=== PATIENT | female | born 1980 | race African-American/Black ===

== ENCOUNTER 2016-12-20 19:08 | Emergency (ER) | payer MEDICAID ==
[~2016-12-20] VITALS: Ht 160 cm; Wt 103.4 kg
[~2016-12-20 19:08] MED LIST: DIFLUCAN100 MG ORAL; IBUPROFEN600 MG ORAL; IBUPROFEN800 M1 PO; METROGEL-VAGINA70 G1 VAGIN
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
[2016-12-20] MEDS ORDERED: TYLENOL EXTRA500 MG ORAL (20:57)
[2016-12-20 21:08] VITALS: BP 127/84
[2016-12-20 21:09] VITALS: BP 127/84
== END 2016-12-20 21:10 | disposition home or self-care (01) ==
LOC: EMR 20:24
DX: M62.830 Muscle spasm of back (principal); O26.93 Pregnancy related conditions, unspecified, third trimester; Z3A.35 35 weeks gestation of pregnancy; V43.92XA Unspecified car occupant injured in collision with other type car in traffic accident, initial encounter; Y93.9 Activity, unspecified; Y92.410 Unspecified street and highway as the place of occurrence of the external cause
CPT/HCPCS: 99284

== ENCOUNTER 2017-03-14 10:19 | Emergency (ER) | payer MEDICAID ==
[~2017-03-14] VITALS: Ht 160 cm; Wt 95.7 kg
[~2017-03-14 10:19] MED LIST changes: +TYLENOL EXTRA500 MG ORAL
[2017-03-14 10:42] VITALS: BP 122/66
--- NOTE | 2017-03-14 11:08 | Emergency Room Report ---
History of Present Illness General Chief Complaint: Pain Source: Patient Present Illness HPI Patient presents with complaints of left inguinal pain Patient reports that she was in therapy when she had her legs crossed in did a backward bending motion which caused the pain to come on Since then she's had off-and-on discomfort worse with ambulation Denies any focal weakness Patient has a history of sciatic problem but that pain usually starts in her back denies any fall or other trauma Pain is fairly well localized to the left inguinal region 5/ sharp Patient has taken [place] at home for the pain Allergies: Coded Allergies: No Known Allergies (Unverified , 11/17/14) Patient History Past Medical History: see triage record Pertinent Family History: none Last Menstrual Period: 03/01/17 Now: No Reviewed Nursing Documentation: PMH: Agreed, PSxH: Agreed Nursing Documentation-PM Past Medical History: No History, Except For Hx Asthma: Yes Review of Systems All Other Systems: negative except mentioned in HPI Physical Exam Vital Signs Date Time Temp Pulse Resp B/P Pulse Ox O2 Delivery O2 Flow Rate FiO2 03/14/17 10:28 98.2 72 16 183/138 99 Room Air Sp02 EP Interpretation: reviewed, normal General Appearance: well appearing, no apparent distress Head: normocephalic, atraumatic Eyes: bilateral eye EOMI, bilateral eye PERRL ENT: hearing grossly normal, normal pharynx, TMs + canals normal, uvula midline Neck: full range of motion, supple, no meningismus, no bony tend Respiratory: lungs clear, normal breath sounds, no rhonchi, no respiratory distress, no retraction, no accessory muscle use Cardiovascular #1: normal peripheral pulses, regular rate, rhythm, no edema, no gallop, no JVD, no murmur Gastrointestinal: normal bowel sounds, non tender, soft, no mass, no organomegaly, non-distended, no guarding, no hernia, no pulsatile mass, no rebound Genitourinary: no CVA tenderness Musculoskeletal: other - Patient's discomfort is fairly well localized to the left inguinal region, no obvious palpable masses or herniation, patient has range of motion intact Neurologic: oriented x3, responsive, utility locate technician III-XII nml as tested, motor strength/ tone normal, sensory intact Psychiatric: mood/affect normal Skin: normal color, no rash, warm/dry, palpation normal Lymphatic: normal inspection, no adenopathy Medical Decision Making Diagnostic Impression: Primary Impression: Groin strain ER Course Patient's clinical exam and history of present be in line with groin strain/ sprain Other differentials such as herniation Occult fractures are all considered However given the findings it does not appear to be the case patient has had 2 [place] prescriptions filled in January and February by to different providers At this time I did discuss that while proceeding this can pose some risk 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 Please note that this report is being documented using [employer] technology. This can lead to erroneous entry secondary to incorrect interpretation by the dictating instrument. MARY ACEVEDO D.O. Mar 14, 2017 11:08
[2017-03-14] MEDS ORDERED: TYLENOL325 MG ORAL (11:14)
[2017-03-14 11:16] VITALS: BP 122/66
== END 2017-03-14 11:18 | disposition home or self-care (01) ==
LOC: EMR 10:47
DX: S39.011A Strain of muscle, fascia and tendon of abdomen, initial encounter (principal); X50.1XXA Overexertion from prolonged static or awkward postures, initial encounter; Y92.89 Other specified places as the place of occurrence of the external cause; J45.909 Unspecified asthma, uncomplicated
CPT/HCPCS: 99283

== ENCOUNTER 2018-09-16 14:27 | Emergency (ER) | payer MEDICAID ==
[~2018-09-16] VITALS: Ht 160 cm; Wt 94.3 kg
[~2018-09-16 14:27] MED LIST changes: +TYLENOL325 MG ORAL
[2018-09-16 14:40] VITALS: BP 118/72
--- NOTE | 2018-09-16 14:52 | Emergency Room Report ---
History of Present Illness General Chief Complaint: Lower Extremity Injury Source: Patient Present Illness HPI Patient is a 37-year-old female presented after increased right-sided foot pain. The patient reports having increased pain to her foot and states that she 's had previous fracture. She presented increased pain with ambulation. Patient had reportedly had a wooden bench fall onto her foot. She denies other locations of pain. Allergies: Coded Allergies: No Known Allergies (Unverified , 11/17/14) Patient History Past Medical History: see triage record Now: No Reviewed Nursing Documentation: PMH: Agreed; PSxH: Agreed Nursing Documentation-PMH Past Medical History: No History, Except For Hx Asthma: Yes Review of Systems All Other Systems: negative except mentioned in HPI Physical Exam Vital Signs Date Time Temp Pulse Resp B/P (MAP) Pulse Ox O2 Delivery O2 Flow Rate FiO2 09/16/18 14:32 98.4 76 17 114/73 97 Room Air Sp02 EP Interpretation: reviewed, normal General Appearance: normal inspection, well appearing, no apparent distress, alert, GCS 15, obese Head: atraumatic ENT: normal ENT inspection, hearing grossly normal, normal voice Neck: normal inspection, full range of motion, supple, no bony tend Respiratory: normal inspection, lungs clear, normal breath sounds, no respiratory distress, no retraction, no wheezing Cardiovascular #1: regular rate, rhythm, no edema Gastrointestinal: normal inspection, normal bowel sounds, non tender, soft, no guarding, no hernia Genitourinary: no CVA tenderness Musculoskeletal: normal inspection, back normal, normal range of motion, swelling Neurologic: normal inspection, alert, responsive, speech normal Psychiatric: normal inspection, judgement/insight normal, mood/affect normal Skin: no rash, other - soft tissue swelling to foot Medical Decision Making Diagnostic Impression: Primary Impression: Contusion of foot ER Course Patient presented for extremity pain.Because of complexity of patient's case imaging studies were ordered.X-ray imaging of the right foot 3 views interpreted by radiology showed normal bony alignment without evident fracture. The patient's placed in a cast shoe. The patient was advised to keep foot elevated and to ice affected area. She is given prescription for ibuprofen. Last Vital Signs Date Time Temp Pulse Resp B/P (MAP) Pulse Ox O2 Delivery O2 Flow Rate FiO2 09/16/18 14:32 98.4 76 17 114/73 97 Room Air Status: improved Disposition: HOME, SELF-CARE Condition: Stable Scripts Ibuprofen* (MOTRIN*) 600 Mg Tablet 600 MG ORAL Q8H PRN for For Pain, #30 TAB 0 Refills Prov: Moshe Granado MD 09/16/18 Moshe Granado MD Sep 16, 2018 14:52
--- NOTE | 2018-09-16 15:36 | Diagnostic Imaging Report ---
Indication: Foot Pain Comparison: None Findings: 3 views of the right foot were obtained. No acute fractures, malalignment, erosions or periostitis are identified. Focus of soft tissue swelling in the dorsum of the foot noted.. Impression: No acute fracture.
[2018-09-16] MEDS ORDERED: IBUPROFEN600 MG ORAL (15:44)
[2018-09-16 16:00] VITALS: BP 124/69
== END 2018-09-16 16:00 | disposition home or self-care (01) ==
LOC: EMR 15:00
DX: S90.31XA Contusion of right foot, initial encounter (principal); X58.XXXA Exposure to other specified factors, initial encounter; Y92.9 Unspecified place or not applicable; J45.909 Unspecified asthma, uncomplicated
CPT/HCPCS: 99283